=== PATIENT | male | born 1995 | race Caucasian/White ===

== ENCOUNTER 2022-08-16 14:23 | Emergency (ER) | payer BC, SELFPAY ==
[2022-08-16 14:28] VITALS: BP 160/98; PULSE 107; O2SAT 98
[2022-08-16 14:41] VITALS: BP 145/101; PULSE 92; RESP 18; TEMP 37; O2SAT 99; BMI 29.8
--- NOTE | 2022-08-16 16:01 | PC.NURSE ---
pt reports SI, denies plan. pt calm and cooperative. resting in Pod overflow area.
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
--- NOTE | 2022-08-16 16:56 | PC.NURSE ---
pt resting, no distressed noted. nicotine gum given per order
[2022-08-16 20:55] VITALS: BP 144/86; PULSE 98; RESP 18; TEMP 36.5; O2SAT 97
[2022-08-16] MEDS: Acetaminophen 325 MG TABLET 975 MG PO (22:11)
--- NOTE | 2022-08-17 06:08 | PC.NURSE ---
Patient slept through the night, no distress observed/reported, behavior non concerning, med rec completed/pending provider's approval, patient was assessed by care team, disposition pending, patient will be revaluated in the morning, VSS, will continue to monitor.
[2022-08-17 06:22] VITALS: RESP 17
[2022-08-17 09:17] VITALS: BP 152/95; PULSE 104; RESP 18; TEMP 36.9; O2SAT 95
== END 2022-08-17 10:12 | disposition home or self-care (01) ==
PROVIDERS: Emergency Provider Emergency Medicine Emergency Medical Services
DX: R45.851 Suicidal ideations (principal); F31.9 Bipolar disorder, unspecified; Z20.822 Contact with and (suspected) exposure to COVID-19
CPT/HCPCS: 36415; 80048; 80307; 81003; 85025; 87635; 99285; S9485